=== PATIENT | male | born 2005 | race Caucasian/White ===

== ENCOUNTER 2023-06-28 19:19 | Emergency (ER) | payer OTHER, SELFPAY ==
[2023-06-28 19:30] VITALS: BP 138/81; PULSE 97; RESP 16; TEMP 36.4; O2SAT 100
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
== END 2023-06-28 22:07 | disposition home or self-care (01) ==
PROVIDERS: Emergency Provider Emergency Medicine
DX: S09.90XA Unspecified injury of head, initial encounter (principal); V43.52XA Car driver injured in collision with other type car in traffic accident, initial encounter
CPT/HCPCS: 99282